=== PATIENT | female | born 1960 | race American Indian/Alaskan Native ===

== ENCOUNTER 2016-08-16 09:39 | Emergency (ER) | payer OTHER ==
[2016-08-16] MEDS ORDERED: ZOFRAN ODT ONE (10:44)
[2016-08-16] MEDS ORDERED: ZOFRAN ODT PO ONE ×2 (10:45→18:00)
[2016-08-16 11:43] LABS: Basophils % (Auto) 0.7 % (0.0-1.8); Eosinophils % (Auto) 2.5 % (0.0-4.3); Hematocrit 43.5 % (30.3-42.9); Hemoglobin 13.9 gm/dl (10.1-14.3); Mean Corpuscular HGB Conc 32 % (30-34); Mean Corpuscular Volume 78 fl (79-97); Platelet Count 233 K/mm3 (140-440); Red Cell Distribution Width 17.1 % (13.2-15.2)
[2016-08-16 11:49] LABS: Mean Corpuscular Hemoglobin 25 pg (28-32)
[2016-08-16 12:08] LABS: Alanine Aminotransferase 21 units/L (7-56); Albumin 4.1 g/dL (3.9-5); Albumin/Globulin Ratio 1.3 %; Alkaline Phosphatase 85 units/L (35-129); Amylase 116 units/L (27-131); Anion Gap 16 mmol/L; BUN/Creatinine Ratio 17.14; Bilirubin,Total 0.5 mg/dL (0.1-1.2); Blood Urea Nitrogen 12 mg/dL (7-17); Calcium 9.4 mg/dL (8.4-10.2); Carbon Dioxide 26 mmol/L (22-30); Chloride 102.6 mmol/L (98-107); Glucose 129 mg/dL (65-100); Lipase 63 units/L (13-60); Potassium 4.6 mmol/L (3.6-5.0); Sodium 140 mmol/L (137-145); Total Protein 7.2 g/dL (6.3-8.2)
[2016-08-16 13:16] LABS: Bilirubin,Urine NEG (Negative); Blood,Urine NEG (Negative); Ketones,Urine NEG (Negative); Leukocyte Esterase,Urine NEG (Negative); Mucus,Urine FEW /HPF; Nitrite,Urine NEG (Negative); Protein,Urine <15 mg/dL mg/dL (Negative); Urobilinogen,Urine < 2.0 mg/dL (<2.0)
--- NOTE | 2016-08-16 16:37 | Emergency Department Report ---
Entered by RHONDA SCHROEDER, acting as scribe for ANALISA KNAPP NP. Chief Complaint: Nausea/Vomiting/Diarrhea Stated Complaint: N/V/D Time Seen by Provider: 08/16/16 11:20 - HPI History of Present Illness: Patient presents to the ED c/o nausea, vomiting, and diarrhea since 04:00. Associated symptoms include upper gastric pain and right shoulder. Reports last vomiting and diarrhea episode was this morning before being triage. Worsened with fatty food intake. - ROS Review of Systems: All systems are negative unless stated in HPI above. - Exam Vital Signs: Vital Signs 08/16/16 10:25 Temperature 98.7 F Pulse Rate 72 Blood Pressure 171/95 O2 Sat by Pulse 98 Oximetry Physical Exam: General: alert and oriented x 3 ABD PAIN MSE screening note: Focused history and physical exam performed. Due to findings the following was ordered: VSS. RUQ PAIN. TO ER FOR EVAL ED Medical Decision Making - Lab Data Result diagrams: 08/16/16 11:32 08/16/16 11:32 - EKG Data EKG shows normal: sinus rhythm Rate: normal - EKG Data When compared to previous EKG there are: no significant change Interpretation: no acute changes - Medical Decision Making Patient seen by provider in triage area. Protocol taken. Patient will be taken to main ED to be seen by provider. ED Disposition for MSE Condition: Stable Referrals: JACINTO CHIRINOS MD [Primary Care Provider] - 3-5 Days This documentation as recorded by the scribe,RHONDA SCHROEDER,accurately reflects the service I personally performed and the decisions made by ALICIA humphries CATHLEEN A, NP.
[2016-08-16] MEDS ORDERED: ZOFRAN PO ONE (17:34)
[2016-08-16] MEDS ORDERED: ALUM-MAG HYDROX-SIMETH 200-200-20MG/5ML PO ONE (17:34)
[2016-08-16] MEDS ORDERED: LIDOCAINE VISCOUS 2% PO ONE (17:34)
[2016-08-16] MEDS ORDERED: BENTYL IM ONE (17:34)
--- NOTE | 2016-08-16 17:41 | Emergency Department Report ---
<JOE DOVE M - Last Filed: 08/16/16 18:44> ED N/V/D HPI - General Chief complaint: Nausea/Vomiting/Diarrhea Stated complaint: N/V/D Time Seen by Provider: 08/16/16 17:27 Source: patient Mode of arrival: Ambulatory Limitations: No Limitations - History of Present Illness Initial comments: PT states she woke up this morning at 0400 with n/v. PT states she thinks she ate something that did not agrees with her yesterday. PT reports eating ribs at [employer] and then eating [place] with dressing last night at 2300. PT states she vomited 4-5 times this morning. PT states her vomiting has stopped since being given a medication while in the ED. PT states her ABD feels sore and she is slightly nauseated but overall, she states she is improved. complaint: nausea, vomiting -: hour(s) Time: 04:00 Description of Vomiting: food contents, watery Associated Abdominal Pain: Yes Location: epigastric Radiation: none Severity: moderate Quality: cramping, other (sore ) Consistency: constant Improves with: medication Context: possible food poisoning Associated Symptoms: denies other symptoms, loss of appetite, nausea/vomiting. denies: chest pain, fever/chills - Related Data Home Medications Medication Instructions Recorded Confirmed Last Taken Hydrochlorothiazide [HCTZ] 25 mg PO DAILY 02/12/16 02/12/16 Unknown glyBURIDE [Diabeta] 2.5 mg PO BID 02/12/16 02/12/16 Unknown metFORMIN [Glucophage] 500 mg PO BID 02/12/16 02/12/16 Unknown Previous Rx's Medication Instructions Recorded Last Taken Type Gentamicin 0.3% Ophth Soln 2 drops OP Q4H #1 bottle 02/12/16 Unknown Rx Ondansetron [Zofran Odt] 4 mg PO Q8HR PRN #10 tab.rapdis 08/16/16 Unknown Rx Allergies Allergy/AdvReac Type Severity Reaction Status Date / Time codeine AdvReac Unknown Verified 07/24/15 09:37 ED Review of Systems ROS: Stated complaint: N/V/D Other details as noted in HPI Comment: All other systems reviewed and negative Constitutional: denies: chills, fever Gastrointestinal: abdominal pain, nausea, vomiting. denies: diarrhea Genitourinary: denies: dysuria Musculoskeletal: denies: back pain ED Past Medical Hx - Past Medical History Previous Medical History?: Yes Hx Hypertension: Yes Hx Diabetes: Yes (dx july 2015) Hx Arthritis: Yes - Surgical History Past Surgical History?: Yes Additional Surgical History: tubal ligation 1984 - Social History Smoking Status: Never Smoker Substance Use Type: None - Medications Home Medications: Home Medications Medication Instructions Recorded Confirmed Last Taken Type Gentamicin 0.3% Ophth Soln 2 drops OP Q4H #1 bottle 02/12/16 Unknown Rx Hydrochlorothiazide [HCTZ] 25 mg PO DAILY 02/12/16 02/12/16 Unknown History glyBURIDE [Diabeta] 2.5 mg PO BID 02/12/16 02/12/16 Unknown History metFORMIN [Glucophage] 500 mg PO BID 02/12/16 02/12/16 Unknown History Ondansetron [Zofran Odt] 4 mg PO Q8HR PRN #10 tab.rapdis 08/16/16 Unknown Rx ED Physical Exam - General Limitations: No Limitations General appearance: alert, in no apparent distress, obese - Head Head exam: Present: atraumatic, normocephalic - Eye Eye exam: Present: normal appearance. Absent: conjunctival injection - ENT ENT exam: Present: normal exam, normal orophraynx, normal external ear exam - Neck Neck exam: Present: normal inspection, full ROM. Absent: lymphadenopathy - Respiratory Respiratory exam: Present: normal lung sounds bilaterally. Absent: respiratory distress, wheezes - Cardiovascular Cardiovascular Exam: Present: regular rate, normal rhythm, normal heart sounds - GI/Abdominal GI/Abdominal exam: Present: soft, tenderness (epigastric ), hypoactive bowel sounds. Absent: guarding, rebound - Expanded GI/Abdominal Exam Expanded GI/Abdominal exam: Absent: Cameorn's sign, tenderness at Mcburney's Point - Extremities Exam Extremities exam: Present: normal inspection, full ROM - Back Exam Back exam: Present: normal inspection, full ROM. Absent: tenderness, CVA tenderness (R), CVA tenderness (L), muscle spasm, paraspinal tenderness, vertebral tenderness - Neurological Exam Neurological exam: Present: alert, oriented X3 - Psychiatric Psychiatric exam: Present: normal affect, normal mood - Skin Skin exam: Present: warm, dry, intact ED Course Vital Signs 08/16/16 08/16/1617 10:25 18:34 18:36 Temperature 98.7 F 98 F Pulse Rate 72 62 Pulse Rate [ 61 Lying] Pulse Rate [ 64 Sitting] Pulse Rate [ 88 Standing] Respiratory 16 Rate Blood Pressure 171/95 Blood Pressure 146/99 [Left] Blood Pressure 141/97 [Lying] Blood Pressure 106/76 [Sitting] Blood Pressure 127/74 [Standing] O2 Sat by Pulse 98 100 Oximetry - Reevaluation(s) Reevaluation #1: 08/16/16 17:42 PT aware of lab results. PT states she is feeling better. PT aware of plan of care. PT has no questions at this time. Reevaluation #2: 08/16/16 18:37 PT states she is feeling much better. PT's abd is soft and non tender. PT given strict return precautions. 08/16/16 18:44 RN checked orthostatic vs, pt orthostatic. pt agrees to get 1LNS bolus and have VS rechecked. - Pulse Oximetry Interpretation Digit-Finger Initial Pulse Oximetry Readin Actions Taken: none ED Medical Decision Making - Lab Data Result diagrams: 08/16/16 11:32 08/16/16 11:32 Labs 08/16/16 08/16/16 08/16/16 11:32 11:32 Unknown WBC 6.0 RBC 5.60 H Hgb 13.9 Hct 43.5 H MCV 78 L MCH 25 L MCHC 32 RDW 17.1 H Plt Count 233 Lymph % (Auto) 37.9 H [place] % (Auto) 7.2 Eos % (Auto) 2.5 Baso % (Auto) 0.7 Lymph # 2.3 [place] # 0.4 Eos # 0.2 Baso # 0.0 Seg Neutrophils % 51.7 Seg Neutrophils # 3.1 Sodium 140 Potassium 4.6 Chloride 102.6 Carbon Dioxide 26 Anion Gap 16 BUN 12 Creatinine 0.7 Estimated GFR > 60 BUN/Creatinine Ratio 17.14 Glucose 129 H Calcium 9.4 Total Bilirubin 0.5 AST 19 ALT 21 Alkaline Phosphatase 85 Troponin T < 0.010 Total Protein 7.2 Albumin 4.1 Albumin/Globulin Ratio 1.3 Amylase 116 Lipase 63 H Urine Color Straw Urine Turbidity Clear Urine pH 6.0 Ur Specific [place] 1.010 Urine Protein <15 mg/dl Urine Glucose (UA) Neg Urine Ketones Neg Urine Blood Neg Urine Nitrite Neg Urine Bilirubin Neg Urine Urobilinogen < 2.0 Ur Leukocyte Esterase Neg Urine WBC (Auto) 1.0 Urine RBC (Auto) 3.0 U Epithel Cells (Auto) 1.0 Urine Mucus Few lipase compared to prior levels. today's lipase lower than the level from July 2015. - EKG Data -: EKG Interpreted by Me EKG shows normal: sinus rhythm Rate: bradycardia - Differential Diagnosis AGE, hyperglycemia, uti, pancreatitis, billiary colic Critical Care Time: No Critical care attestation.: If time is entered above; I have spent that time in minutes in the direct care of this critically ill patient, excluding procedure time. ED Disposition Disposition: DISCHARGED TO HOME OR SELFCARE Is pt being admited?: No Does the pt Need Aspirin: No Condition: Stable Instructions: Acute Nausea and Vomiting (ED), Abdominal Pain (ED) Additional Instructions: Have your BP rechecked on follow up clear liquid diet and then advance as tolerated Prescriptions: Ondansetron [Zofran Odt] 4 mg PO Q8HR PRN #10 tab.rapdis PRN Reason: Nausea Referrals: JACINTO CHIRINOS MD [Primary Care Provider] - 3-5 Days Forms: Work/School Release Form(ED) Time of Disposition: 18:39 <CELIA DOBSON - Last Filed: 08/16/16 21:12> ED Course Vital Signs 08/16/16 08/16/16 08/16/16 10:25 18:34 18:36 Temperature 98.7 F 98 F Pulse Rate 72 62 Pulse Rate [ 61 Lying] Pulse Rate [ 64 Sitting] Pulse Rate [ 88 Standing] Respiratory 16 Rate Blood Pressure 171/95 Blood Pressure 146/99 [Left] Blood Pressure 141/97 [Lying] Blood Pressure 106/76 [Sitting] Blood Pressure 127/74 [Standing] O2 Sat by Pulse 98 100 Oximetry Patient is no longer orthostatic. Please refer to vital signs noted by RN under vital signs. - Reevaluation(s) Reevaluation #3: 08/16/16 20:23: Patient is no longer orthostatic after second liter of IV fluid. She is rated be discharged home. Vital signs normalized. Discharged home and to follow-up with her primary care physician 08/16/16 20:23 Blood pressure ED Medical Decision Making - Lab Data Result diagrams: 08/16/16 11:32 04/17/17 11:32
[2016-08-16 18:37] VITALS: BP 141/97
[2016-08-16] MEDS ORDERED: NACL 0.9% 1000 ML 1,000 ML IV ONE (18:43)
== END 2016-08-16 20:42 | disposition home or self-care (01) ==
LOC: ED 09:39
DX: R11.2 Nausea with vomiting, unspecified (principal); I10 Essential (primary) hypertension; E11.9 Type 2 diabetes mellitus without complications; M19.90 Unspecified osteoarthritis, unspecified site; Z88.5 Allergy status to narcotic agent
CPT/HCPCS: 36415; 80053; 81001; 82150; 83690; 84484; 85025; 93005; 93010; 96360; 96372; 99284; J0500; J7030; Q0162

== ENCOUNTER 2017-12-17 09:21 | Emergency (ER) | payer OTHER ==
[2017-12-17 10:14] VITALS: BP 151/93
--- NOTE | 2017-12-17 11:07 | Emergency Department Report ---
ED Back Pain/Injury HPI - General Chief Complaint: Back Pain/Injury Stated Complaint: BACK AND SIDE PAIN, SORE THROAT Time Seen by Provider: 12/17/17 10:38 Source: patient Limitations: No Limitations - History of Present Illness Initial Comments: This is a 56-year-old -[place] female who presents with dysuria and low back pain on right for one week. Past medical history diabetes type 2, hypertension, neuropathy, and arthritis. Patient states pain on right low back started when dysuria started. Patient states she has had recurrent yeast infections with urinary tract infections in the past from diabetes. Patient states she has taken Tylenol with no improvement of symptoms. She denies radiating pain. Patient also complained of sore throat for 1 day. She is able to tolerate liquids and solids. She is using Chloraseptic spray with no improvement of symptoms. Patient denies nausea or vomiting, radiating pain, abdominal pain, chest pain, fever, change in pain or bowel pattern. MD Complaint: back pain Onset/Timin -: week(s) Similar Symptoms Previously: Yes Place: home Radiation: none Severity: moderate Severity scale (0 -10): 6 Quality: burning, aching Consistency: intermittent Improves With: other Worsens With: other (urination) Context: unknown Associated Symptoms: denies other symptoms Treatments Prior to Arrival: NSAIDS - Related Data Home Medications Medication Instructions Recorded Confirmed Last Taken glyBURIDE [Diabeta] 2.5 mg PO BID 02/12/16 02/12/16 Unknown hydroCHLOROthiazide [HCTZ] 25 mg PO DAILY 02/12/16 02/12/16 Unknown metFORMIN [Glucophage] 500 mg PO BID 02/12/16 02/12/16 Unknown Previous Rx's Medication Instructions Recorded Last Taken Type Gentamicin 0.3% Ophth Soln 2 drops OP Q4H #1 bottle 02/12/16 Unknown Rx Ondansetron [Zofran Odt] 4 mg PO Q8HR PRN #10 tab.rapdis 08/16/16 Unknown Rx Fluconazole [Diflucan] 150 mg PO DAILY 2 Days #2 tablet 12/17/17 Unknown Rx metroNIDAZOLE [Metronidazole] 500 mg PO BID #14 tablet 12/17/17 Unknown Rx Allergies Allergy/AdvReac Type Severity Reaction Status Date / Time codeine AdvReac Unknown Verified 07/24/15 09:37 ED Review of Systems ROS: Stated complaint: BACK AND SIDE PAIN, SORE THROAT Other details as noted in HPI Constitutional: denies: chills, fever Respiratory: denies: cough, shortness of breath, wheezing Cardiovascular: denies: chest pain, palpitations Gastrointestinal: denies: abdominal pain, nausea, vomiting, diarrhea Genitourinary: dysuria, other (vaginal itching). denies: urgency, discharge Musculoskeletal: back pain (back pain). denies: joint swelling, arthralgia Skin: denies: rash, lesions Neurological: denies: headache, weakness, numbness, paresthesias Psychiatric: denies: anxiety, depression ED Past Medical Hx - Past Medical History neuropathy Family history: no significant family history ED Back Pain Physical Exam - Exam General: Vital signs noted. No distress. Alert and acting appropriately. Back/Abdomen: Yes Flank Tenderness (right), No Abdominal Tenderness, No Perithoracic Tenderness, No Perilumbar Tenderness, No Sacroiliac Tenderness, No Straight Leg Raise Pain Neuro: Yes Normal Sensation, Yes Normal DTR's, Yes Normal Gait, No Motor Weakness ED Course Vital Signs 12/17/17 10:10 Temperature 98.7 F Pulse Rate 74 Respiratory 18 Rate Blood Pressure 151/93 O2 Sat by Pulse 99 Oximetry Ed Back Pain Tests - Tests Tests: Normal UA ED Medical Decision Making - Medical Decision Making This is a 56-year-old -[place] female who presents with low back pain and dysuria for 1 week. She is also complaining of sore throat for 1 day. PMH of DM2, HTN, and arthritis. Patient was examined by me. Vitals are stable and in no acute distress. I obtained urinalysis, wet prep via pelvic exam, and rapid strep. Rapid strep negative, urinalysis normal, and wet prep positive for yeast and clue cells, negative trichomoniasis. Patient will start Diflucan and Flagyl for vaginal candidiasis and bacterial vaginitis. Discharged home in stable condition. Discussed prevention options. F/U with PCP. Critical care attestation.: If time is entered above; I have spent that time in minutes in the direct care of this critically ill patient, excluding procedure time. ED Disposition Clinical Impression: Bacterial vaginitis, Vaginal candidiasis Upper respiratory infection Qualifiers: URI type: acute nasopharyngitis (common cold) Qualified Code(s): J00 - Acute nasopharyngitis [common cold] Disposition: DC-01 TO HOME OR SELFCARE Is pt being admited?: No Does the pt Need Aspirin: No Condition: Stable Instructions: Bacterial Vaginosis (ED), Upper Respiratory Infection (ED), Vulvovaginal Candidiasis (ED) Additional Instructions: Increase fluid intake. Complete full course of antibiotics as prescribed. Avoid drinking alcohol while taking antibiotics and fore up to 24 hours after completion. Wash hands frequently. Continue taking tylenol or ibuprofen for pain. Return to ER if fever, SOB, or difficulty breathing after 48 hours of supportive care. Follow-up with primary care provider in 2-3 days. Prescriptions: Fluconazole [Diflucan] 150 mg PO DAILY 2 Days #2 tablet metroNIDAZOLE [Metronidazole] 500 mg PO BID #14 tablet Referrals: [facility] [Outside] - 3-5 Days [facility] [Outside] - 3-5 Days [facility] [Outside] - 3-5 Days Forms: STI Treatment and Prevention Time of Disposition: 12:24 Print Language: ETHIOPIAN ED Female EXAM - General General appearance: alert, in no apparent distress, obese Limitations: No Limitations GI/Abdominal exam: Positive: soft, normal bowel sounds. Negative: distended, tenderness, guarding, rebound, rigid, organomegaly, mass Female exam: Positive: vulvar erythema, other (white malodorous curdy discharge). Negative: vaginal laceration, tissue present in vagina, herpetic lesions, vulvar tenderness, foreign body Back exam: full ROM, CVA tenderness (R). denies: CVA tenderness (L), muscle spasm, paraspinal tenderness, vertebral tenderness, rash noted Neurological exam: Positive: alert, altered, normal gait Psychiatric exam: Positive: normal affect, normal mood Skin exam: Positive: warm, dry, intact, normal color. Negative: rash
[2017-12-17 11:28] LABS: Bilirubin,Urine NEG (Negative); Blood,Urine NEG (Negative); Protein,Urine <15 mg/dL mg/dL (Negative); Urobilinogen,Urine < 2.0 mg/dL (<2.0)
[2017-12-17 11:45] LABS: Color,Urine Yellow (Yellow)
== END 2017-12-17 12:39 | disposition home or self-care (01) ==
LOC: ED 09:21
DX: N76.0 Acute vaginitis (principal); J00 Acute nasopharyngitis [common cold]; E11.40 Type 2 diabetes mellitus with diabetic neuropathy, unspecified; M19.90 Unspecified osteoarthritis, unspecified site; Z88.5 Allergy status to narcotic agent
CPT/HCPCS: 81001; 82962; 87116; 87210; 87430; 99284

== ENCOUNTER 2019-02-28 19:32 | Emergency (ER) | payer OTHER ==
--- NOTE | 2019-02-28 19:50 | Event Note ---
ED Screening Note Date of service: 02/28/19 Time: 19:49 ED Screening Note: Pt complains of possible abscesses on left buttock x 4 days denies fever/chills/sweats +DM This initial assessment/diagnostic orders/clinical plan/treatment(s) is/are subject to change based on patients health status, clinical progression and re- assessment by fellow clinical providers in the ED. Further treatment and workup at subsequent clinical providers discretion. Patient/guardian urged not to elope from the ED as their condition may be serious if not clinically assessed and managed. Initial orders include:
[2019-02-28 19:52] VITALS: BP 163/83
[2019-02-28] MEDS ORDERED: CLINDAMYCIN 300 MG CAP PO ONE (22:24)
--- NOTE | 2019-02-28 22:33 | Emergency Department Report ---
ED General Adult HPI - General Chief complaint: Skin/Abscess/Foreign Body Stated complaint: BOILS ON MY BOTTOM Time Seen by Provider: 02/28/19 19:49 Source: patient Mode of arrival: Ambulatory Limitations: No Limitations - History of Present Illness Initial comments: This is a 58-year-old female who presents to ED complaining of left left sided buttock pain and redness for the past week. Patient states she is unsure she was bitten by anything but noticed redness area in the boil to her left buttock area. She states that she is gets intermittent fevers but denies nausea vomiting diarrhea or any other symptoms. Associated Symptoms: denies other symptoms. denies: headaches, loss of appetite, nausea/vomiting, rash - Related Data Home Medications Medication Instructions Recorded Confirmed Last Taken glyBURIDE [Diabeta] 2.5 mg PO BID 02/12/16 02/12/16 Unknown hydroCHLOROthiazide [HCTZ] 25 mg PO DAILY 02/12/16 02/12/16 Unknown metFORMIN [Glucophage] 500 mg PO BID 02/12/16 02/12/16 Unknown Previous Rx's Medication Instructions Recorded Last Taken Type Gentamicin 0.3% Ophth Soln 2 drops OP Q4H #1 bottle 02/12/16 Unknown Rx Ondansetron [Zofran Odt] 4 mg PO Q8HR PRN #10 tab.rapdis 08/16/16 Unknown Rx Fluconazole [Diflucan] 150 mg PO DAILY 2 Days #2 tablet 12/17/17 Unknown Rx metroNIDAZOLE [Metronidazole] 500 mg PO BID #14 tablet 12/17/17 Unknown Rx Clindamycin [Clindamycin CAP] 300 mg PO Q8H #21 cap 02/28/19 Unknown Rx Fluconazole [Diflucan TAB] 200 mg PO QDAY #1 tablet 02/28/19 Unknown Rx cephALEXin [Keflex] 500 mg PO Q12HR #10 cap 02/28/19 Unknown Rx Allergies Allergy/AdvReac Type Severity Reaction Status Date / Time codeine AdvReac Unknown Verified 07/24/15 09:37 ED Review of Systems ROS: Stated complaint: BOILS ON MY BOTTOM Other details as noted in HPI Comment: All other systems reviewed and negative ED Past Medical Hx - Past Medical History Previous Medical History?: Yes Hx Hypertension: Yes Hx Diabetes: Yes (dx july 2015) Hx Arthritis: Yes Additional medical history: neuropathy - Surgical History Past Surgical History?: Yes Additional Surgical History: tubal ligation 1984 - Social History Smoking Status: Never Smoker Substance Use Type: None - Medications Home Medications: Home Medications Medication Instructions Recorded Confirmed Last Taken Type Gentamicin 0.3% Ophth Soln 2 drops OP Q4H #1 bottle 02/12/16 Unknown Rx glyBURIDE [Diabeta] 2.5 mg PO BID 02/12/16 02/12/16 Unknown History hydroCHLOROthiazide [HCTZ] 25 mg PO DAILY 02/12/16 02/12/16 Unknown History metFORMIN [Glucophage] 500 mg PO BID 02/12/16 02/12/16 Unknown History Ondansetron [Zofran Odt] 4 mg PO Q8HR PRN #10 tab.rapdis 08/16/16 Unknown Rx Fluconazole [Diflucan] 150 mg PO DAILY 2 Days #2 tablet 12/17/17 Unknown Rx metroNIDAZOLE [Metronidazole] 500 mg PO BID #14 tablet 12/17/17 Unknown Rx Clindamycin [Clindamycin CAP] 300 mg PO Q8H #21 cap 02/28/19 Unknown Rx Fluconazole [Diflucan TAB] 200 mg PO QDAY #1 tablet 02/28/19 Unknown Rx cephALEXin [Keflex] 500 mg PO Q12HR #10 cap 02/28/19 Unknown Rx ED Physical Exam - General Limitations: No Limitations General appearance: alert, in no apparent distress - Head Head exam: Present: atraumatic, normocephalic - Eye Eye exam: Present: normal appearance - ENT ENT exam: Present: mucous membranes moist - Neck Neck exam: Present: normal inspection - Respiratory Respiratory exam: Present: normal lung sounds bilaterally. Absent: respiratory distress - Cardiovascular Cardiovascular Exam: Present: regular rate, normal rhythm. Absent: systolic murmur, diastolic murmur, rubs, gallop - GI/Abdominal GI/Abdominal exam: Present: soft, normal bowel sounds - External exam: Present: erythema. Absent: swelling, bleeding - Extremities Exam Extremities exam: Present: normal inspection - Back Exam Back exam: Present: normal inspection - Neurological Exam Neurological exam: Present: alert, oriented X3 - Psychiatric Psychiatric exam: Present: normal affect, normal mood - Skin Skin exam: Present: warm, dry, intact, normal color, erythema (lesion on the left buttock, consistent with a small topical boil). Absent: rash, abrasion ED Course Vital Signs 02/28/19 19:49 Temperature 99.1 F Pulse Rate 96 H Respiratory 16 Rate Blood Pressure 163/83 O2 Sat by Pulse 97 Oximetry ED Medical Decision Making - Medical Decision Making 58-year-old female presents with cellulitis from insect bite to the left buttock. Patient received clindamycin in the ED. Discuss trial of antibiotic therapy for the next week. Discussed follow-up with primary care physician. Discussed heat therapy 3 times a day. Critical care attestation.: If time is entered above; I have spent that time in minutes in the direct care of this critically ill patient, excluding procedure time. ED Disposition Clinical Impression: Insect bite Disposition: DC-01 TO HOME OR SELFCARE Is pt being admited?: No Does the pt Need Aspirin: No Condition: Stable Instructions: Cellulitis (ED), Insect Bite or Sting (ED) Additional Instructions: Make sure to follow up with the primary care physician as discussed. Take all your medications as you've been prescribed. If you have any worsening symptoms or develop new symptoms please return to ED immediately. Prescriptions: Clindamycin [Clindamycin CAP] 300 mg PO Q8H #21 cap Fluconazole [Diflucan TAB] 200 mg PO QDAY #1 tablet cephALEXin [Keflex] 500 mg PO Q12HR #10 cap Referrals: [facility] [Outside] - 3-5 Days Forms: Work/School Release Form(ED) Time of Disposition: 23:23
== END 2019-02-28 23:51 | disposition home or self-care (01) ==
LOC: ED 19:32
DX: S30.860A Insect bite (nonvenomous) of lower back and pelvis, initial encounter (principal); L03.317 Cellulitis of buttock; I10 Essential (primary) hypertension; E11.9 Type 2 diabetes mellitus without complications; M19.90 Unspecified osteoarthritis, unspecified site; Z98.51 Tubal ligation status; Z79.899 Other long term (current) drug therapy; Z88.5 Allergy status to narcotic agent; W57.XXXA Bitten or stung by nonvenomous insect and other nonvenomous arthropods, initial encounter; Y93.89 Activity, other specified; Y92.89 Other specified places as the place of occurrence of the external cause; Y99.8 Other external cause status